=== PATIENT | female | born 1955 | race Caucasian/White ===

== ENCOUNTER 2021-03-28 08:31 | Emergency (ER) | payer OTHER ==
[~2021-03-28] VITALS: Ht 157.5 cm; Wt 93.4 kg
[2021-03-28] MEDS ORDERED: ADVAIR HFA 115/12 GM (08:41)
[2021-03-28] MEDS ORDERED: SPIRIVA RESPIMAT4 G1 (08:42)
[2021-03-28] MEDS ORDERED: PROAIR RESPICL90 MCG (08:43)
== END 2021-03-28 12:30 | disposition home or self-care (01) ==
LOC: ER 08:31
DX: B34.9 Viral infection, unspecified (principal); Z03.818 Encounter for observation for suspected exposure to other biological agents ruled out